=== PATIENT | female | born 1960 | race Caucasian/White ===

== ENCOUNTER 2018-01-04 12:08 | Observation (INO) ==
[2018-01-04] MEDS ORDERED: cefTRIAXone 2,000 MG in Water for inj. (sterile) 20 ML 10 ML IVP ONE (12:18)
[2018-01-04 13:08] LABS: Basophils # 0.1 K/mcL (0.0-0.2); Basophils % 0.5 %; Eosinophils % 0.3 %; Hematocrit 35.5 % (35.3-44.9); Hemoglobin 11.8 g/dL (11.5-15.4); Immature Granulocytes % 1.8 % (0-4); Lymphocytes # 0.7 K/mcL (0.6-4.6); Lymphocytes % 6.6 %; Mean Corpuscular HGB Conc 33.2 g/dL (31.6-35.5); Mean Corpuscular Hemoglobin 28.7 pg (28.0-33.3); Mean Corpuscular Volume 86.4 fL (83.0-100.0); Mean Platelet Volume 9.2 fL (9.4-12.4); Monocytes # 0.5 K/mcL (0.0-1.3); Monocytes % 4.7 %; Neutrophils # 8.8 K/mcL (1.6-8.9); Platelet Count 173 K/mcL (140-400); Red Blood Count 4.11 M/mcL (3.82-4.97); Red Cell Distribution Width 14.1 % (11.5-14.5); Segmented Neutrophils % 86.1 %
--- NOTE | 2018-01-04 13:12 | Emergency Department Note ---
Disposition Clinical Impression: UTI (urinary tract infection) Qualifiers: Urinary tract infection type: site unspecified Hematuria presence: without hematuria Qualified Code(s): N39.0 - Urinary tract infection, site not specified Fever Qualifiers: Fever type: due to other condition Qualified Code(s): R50.81 - Fever presenting with conditions classified elsewhere Disposition: Admitted As Inpatient Referrals: Stephanie Daniels CNP [Primary Care Provider] - Forms: ED Satisfaction Letter Time of Disposition: 14:07 Fever HPI - General Chief Complaint: ED Fever Stated Complaint: fever had surgery yesterday Time Seen by Provider: 01/04/18 12:18 Source: patient Limitations: no limitations Nursing Notes Reviewed: Yes Vital Signs Reviewed: Yes - History of Present Illness HPI Narrative: Patient had procedure yesterday at [place] [place] [facility]. Cystoscopy with stent placement by Dr. Montanez for ureteral obstruction. Past medical history same in March. Patient has had stents in the past. She was discharged approximately 2 PM yesterday and really has not felt well since then. Mid early-morning chills smoker from sleep. Nausea. No vomiting. Denies any headache denies any back or abdominal pain. Denies any chest pain. She reports hourly urination since she was released but states that it has been clear without blood or cloudy appearance. Patient has a history of a urinary tract infection 3 weeks ago took most of her antibiotic she says did not finish all of them Pt Subjective Complaint: fever, malaise, weakness, rigors Onset (ago): hour(s) Maximum Temperature Reported: 103 F Temperature Source: oral Context: recent procedure/surgery Associated symptoms: Reports: chills, rigors, myalgias. Denies: cough, dyspnea , abdominal pain, vomiting, diarrhea Improves with: nothing Worsens with: nothing Treatments prior to arrival fever: none - Related Data Home Medications Medication Instructions Recorded Confirmed Amitriptyline HCl 25 mg PO HS 03/05/16 01/04/18 Cholecalciferol (Vitamin D3) 2,000 unit PO DAILY 03/05/16 01/04/18 [Vitamin D3] Levothyroxine [Synthroid] 112 mcg PO DAILY 03/05/16 01/04/18 Oxybutynin Chloride [Ditropan Xl] 15 mg PO DAILY 03/05/16 01/04/18 Docusate [Colace] 200 mg PO DAILY 01/04/18 01/04/18 Insulin Glargine,Hum.rec.anlog 24 unit SQ HS 01/04/18 01/04/18 [Basaglar Kwikpen U-100] Linagliptin [Tradjenta] 5 mg PO DAILY 01/04/18 01/04/18 Potassium Chloride [K-Tab ER] 20 meq PO DAILY 01/04/18 01/04/18 Allergies Allergy/AdvReac Type Severity Reaction Status Date / Time No Known Allergies Allergy Verified 04/10/16 11:17 All systems ED: reviewed and negative except as stated. Review of Systems: As Per HPI Genitourinary: Reports: as per HPI Fever PMH - Past Medical History Medical history: Reports: diabetes, hypertension, kidney stones, renal disease, other Surgical history: Reports: , thyroidectomy, other Psychiatric history: Reports: no psych history PILE FABRIC KNITTER history: Reports: no PILE FABRIC KNITTER history - Social History Smoking Status: Never smoker Alcohol use: Reports: none Drug use: Reports: none Physical Exam Constitutional: Patient is oriented to person, place, and time. Skin color is pale. Appears well hydrated, body habitus normal . patient appears acutely uncomfortable. She reports chilling. Denies pain. Head: Normocephalic and atraumatic. External ear exam normal Nose: Nose normal. Mouth/Throat: Uvula is midline, oropharynx is clear and moist and mucous membranes are normal. Eyes: Conjunctivae nl, extraocular motions and lids are normal. Pupils are equal , round, and reactive to light. Neck: Normal range of motion and phonation normal. Neck supple. Cardiovascular: Rapid heart rate, regular rhythm, normal heart sounds. Pulmonary/Chest: No Respiratory distress. Respiratory Effort normal and breath sounds clear, breathing rate is rapid. Abdominal: Soft. Normal appearance and bowel sounds are normal. no tenderness, no masses, no guarding, no rebound mild right flank tenderness Musculoskeletal: Good distal pulses. Soft compartments. Brisk cap refill. Extremities: Normal range of motion.Intact peripheral pulses. No Edema. Extremity skin color nl, no calf tenderness or palpable cords. Neurological: Patient is alert and oriented without evidence of obvious motor deficits Skin: Skin is warm, dry and intact. color is pale, cap refill is quick Psychiatric: Patient has depressed mood and flat affect. Patient speech is normal and behavior is normal. Thought content normal. - General Limitations: no limitations General appearance: alert, in no apparent distress Course - Reevaluation(s) Reevaluation #1: Symptoms have improved significantly. Heart rate is down. Patient's lactate is normal and I discussed the case with Dr. Ramírez urology who done the procedure yesterday. He reiterated that she had a balloon dilation of the right ureter for a stricture of the ureter. He was not suspicious that she may have any complication related to that but we did look up culture results from their system on 12/15 and she had Escherichia coli which was pansensitive except for sulfa. He felt as though she should be hospitalized but did not feel as though she required transfer up there. Patient would like to stay here. I spoke with hospitalist on-call Dr. Castellanos who agreed with hospitalization here. he will place orders. pt agreeable to plan Time: 14:07 Vital Signs Temperature 103 F H 01/04/18 12:19 Pulse Rate 103 01/04/18 12:19 Respiratory Rate 22 01/04/18 12:19 Blood Pressure 160/112 01/04/18 12:19 O2 Sat by Pulse Oximetry 95 01/04/18 12:19 Temperature 102.6 F H 01/04/18 13:24 Pulse Rate 92 01/04/18 13:24 Respiratory Rate 16 01/04/18 13:24 Blood Pressure 160/112 01/04/18 12:19 O2 Sat by Pulse Oximetry 95 01/04/18 13:24 Oxygen Delivery Oxygen Delivery Room Air Fever - MDM Narrative Medical decision making narrative: diff dx also includes: aspiration pneumonia sepsis/bacteremia from recent procedure - Differential Diagnosis Likely: community acquired pneumonia, pyelonephritis, sepsis, influenza - Medical Records Medical records reviewed: Yes I reviewed the patient's medical records. - Lab Data Lab results reviewed: Yes I reviewed the patient's lab results. Result diagrams: 01/04/18 12:53 01/04/18 12:53 Lab Results 01/04/18 01/04/18 01/04/18 Range/Units 12:53 12:53 12:53 WBC 10.3 (4.3-11.1) K/mcL RBC 4.11 (3.82-4.97) M/mcL Hgb 11.8 (11.5-15.4) g/dL Hct 35.5 (35.3-44.9) % MCV 86.4 (83.0-100.0) fL MCH 28.7 (28.0-33.3) pg MCHC 33.2 (31.6-35.5) g/dL RDW 14.1 (11.5-14.5) % Plt Count 173 (140-400) K/mcL MPV 9.2 L (9.4-12.4) fL Immature Gran % 1.8 (0-4) % Seg Neutrophils % 86.1 % Lymphocytes % 6.6 % Monocytes % 4.7 % Eosinophils % 0.3 % Basophils % 0.5 % Neutrophils # 8.8 (1.6-8.9) K/mcL Lymphocytes # 0.7 (0.6-4.6) K/mcL Monocytes # 0.5 (0.0-1.3) K/mcL Eosinophils # 0.0 (0.0-0.6) K/mcL Basophils # 0.1 (0.0-0.2) K/mcL Sodium 129 L (136-145) mEq/L Potassium 4.0 (3.5-5.1) mEq/L Chloride 103 (98-107) mEq/L Carbon Dioxide 20 L (23-29) mEq/L BUN 39 H (6-20) mg/dL Creatinine 2.03 H (0.60-1.20) mg/dL Est GFR ( Amer) 30 L (> 60) Est GFR (Non-Af Amer) 25 L (> 60) BUN/Creatinine Ratio 19 (6-26) Glucose 219 H (70-105) mg/dL Calculated Osmolality 284 (280-300) Lactic Acid 0.9 (0.5-2.2) mmol/L Calcium 8.8 (8.6-10.3) mg/dL Total Bilirubin 0.4 (0.3-1.0) mg/dL Direct Bilirubin 0.1 (0.0-0.2) mg/dL Indirect Bilirubin 0.3 (0.0-1.2) mg/dL AST 11 L (13-39) Units/L ALT 9 (7-52) Units/L Alkaline Phosphatase 91 (34-104) Units/L Serum Total Protein 7.7 (6.4-8.9) g/dL Albumin 3.6 (3.5-5.7) g/dL Globulin 4.1 H (2.4-3.5) g/dL Albumin/Globulin Ratio 0.9 L (1.1-2.2) - Radiology Data Radiology results reviewed: Yes I reviewed the patient's radiology results. Portable chest x-ray per radiology reveals no evidence of acute cardiopulmonary disease. KUB reveals double J right ureteral stent to be in good position
[2018-01-04] MEDS: 0.9 % Sodium Chloride 1,000 ML IVC SCH ×4 (13:19→23:16)
[2018-01-04 13:23] LABS: Albumin 3.6 g/dL (3.5-5.7); Albumin/Globulin Ratio 0.9 (1.1-2.2); Bilirubin,Direct 0.1 mg/dL (0.0-0.2); Bilirubin,Indirect 0.3 mg/dL (0.0-1.2); Bilirubin,Total 0.4 mg/dL (0.3-1.0); Calcium 8.8 mg/dL (8.6-10.3); Globulin 4.1 g/dL (2.4-3.5); Total Protein 7.7 g/dL (6.4-8.9)
[2018-01-04 14:14] LABS: Bilirubin,Urine Negative (Negative); Blood,Urine Large (Negative); Clarity,Urine Slightly Cloudy (Clear); Color,Urine Yellow (Yellow); Glucose,Urine (UA) Normal (Normal); Ketones,Urine Negative (Negative); Leukocyte Esterase,Urine Large (Negative); Nitrite,Urine Negative (Negative); Protein,Urine >=300 mg/dL (Neg-Trace); Specific Gravity,Urine 1.015 (1.010-1.025); Urobilinogen,Urine Normal (Normal)
[2018-01-04 14:15] LABS: Bacteria,Urine Moderate per hpf (None-Few); RBC,Urine 50-100 per hpf (0-3); Squamous Epithelial Cell,Urine Few per lpf (None-Few); WBC,Urine TNTC per hpf (0-3)
[2018-01-04] MEDS ORDERED: *HR* Dextrose 50 % in Water (Syg) 50 ML SYRINGE IVP PRN (16:34)
[2018-01-04] MEDS ORDERED: Dextrose Gel 15 GM/37.5 ML TUBE PO PRN ×2 (16:34)
[2018-01-04] MEDS ORDERED: D5% in Water 1,000 ML IVC PRN (16:34)
[2018-01-04] MEDS: *HR* Heparin 5,000 UNIT/ML VIAL SQ SCH (17:39)
[2018-01-04] MEDS: Acetaminophen 325 MG TABLET PO PRN (18:25)
[2018-01-04] MEDS: Insulin LISPRO 300 UNITS/3 ML VIAL SQ SCH (21:26)
[2018-01-04] MEDS: Insulin DETEMIR 100 UNIT/ML X5UNITS SQ SCH (21:29)
[2018-01-05] MEDS: *HR* Heparin 5,000 UNIT/ML VIAL SQ SCH ×2 (05:44→18:41)
[2018-01-05] MEDS: 0.9 % Sodium Chloride 1,000 ML IVC SCH ×3 (06:25→23:02)
[2018-01-05 06:55] LABS: Calcium 7.9 mg/dL (8.6-10.3); Potassium 3.6 mEq/L (3.5-5.1)
[2018-01-05 07:04] LABS: Basophils % 0.3 %; Eosinophils % 0.2 %; Hematocrit 30.9 % (35.3-44.9); Hemoglobin 10.3 g/dL (11.5-15.4); Immature Granulocytes % 1.1 % (0-4); Lymphocytes # 1.7 K/mcL (0.6-4.6); Lymphocytes % 13.4 %; Mean Corpuscular HGB Conc 33.3 g/dL (31.6-35.5); Mean Corpuscular Hemoglobin 28.5 pg (28.0-33.3); Mean Corpuscular Volume 85.4 fL (83.0-100.0); Mean Platelet Volume 10.9 fL (9.4-12.4); Monocytes # 0.5 K/mcL (0.0-1.3); Monocytes % 4.1 %; Platelet Count 106 K/mcL (140-400); Red Blood Count 3.62 M/mcL (3.82-4.97); Red Cell Distribution Width 14.3 % (11.5-14.5); Segmented Neutrophils % 80.9 %
[2018-01-05 07:06] LABS: Thyroid Stimulating Hormone 2.828 mcIU/mL (0.340-5.600)
[2018-01-05] MEDS: cefTRIAXone 1,000 MG in Water for inj. (sterile) 20 ML 10 ML IVP SCH (08:56)
[2018-01-05] MEDS: Cholecalciferol (D-3) 1,000 UNIT TABLET PO SCH (08:56)
[2018-01-05] MEDS: (Linagliptin [Tradjenta] 5 MG) PO SCH (08:57)
[2018-01-05] MEDS: Insulin LISPRO 300 UNITS/3 ML VIAL SQ SCH ×4 (08:57→20:55)
--- NOTE | 2018-01-05 14:31 | Internal Med History&Physical ---
Date of Encounter: 01/05/18 Time of Encounter: 14:28 Assessment and Plan (1) UTI (urinary tract infection) Current visit: Yes Status: Acute Patient continues to have frequency but denies any dysuria or hematuria. Patient continues on Rocephin for UTI. Continued with low-grade fever. We will continue with current plan of care. Vital signs are stable. We will evaluate for possible conversion to oral antibiotics Qualifiers: Urinary tract infection type: acute cystitis Hematuria presence: without hematuria Qualified Code(s): N30.00 - Acute cystitis without hematuria (2) Volume depletion Current visit: Yes Status: Acute Resolved. Patient had 0.9NS infusing at 125 cc/hr overnight and today her sodium has dropped to 126 with a serum osmole of 271. Patient's taking by mouth fluids well. We will discontinue current IV fluids (3) Type 2 diabetes mellitus Current visit: No Status: Chronic No acute issues. Glucose remains slightly elevated but is covered with SSRI. We will continue with current medications. Qualifiers: Diabetes mellitus complication status: with kidney complications Diabetes mellitus complication detail: with chronic kidney disease Diabetes mellitus tower air traffic control specialist insulin use: without tower air traffic control specialist use Chronic kidney disease stage: stage 3 (moderate) Qualified Code(s): E11.22 - Type 2 diabetes mellitus with diabetic chronic kidney disease (4) CKD (chronic kidney disease), stage III Current visit: No Status: Chronic No acute issues. Patient's creatinine has dropped to 1.9. We will stop IV fluid resuscitation at this time. Internal Medicine - H&P: HPI Admitted From: Home Plans for Post Hospital Care: Home History of present illness: Ms. Costello is a 57 year old female who was admitted to emergency department yesterday with UTI. Patient had a ureter stent placed 2 days ago by urology and was discharged to home. Yesterday she had fever and chills with a temperature of 103 and presented to emergency Department. Patient was admitted for IV antibiotics and fluid resuscitation. Patient currently appears relaxed and denies any issues. Remains febrile with low-grade fever. Patient has received IV fluids overnight and currently her labs show her sodium dropping to 126 with a calculated serum osmolality 271. Patient states she continues to have frequency but denies any dysuria or hematuria. Denies any other discomforts Past Med Surg Social Fam HX - Past Medical History Medical history: diabetes, hypertension, kidney stones, renal disease, other Psychiatric history: no psych history - Past Surgical History Surgical History: , thyroidectomy, other - Social History Smoking Status: Never smoker Smokeless Tobacco Status: No Alcohol use: none Drug use: none - Family History Mother Living Status: Hx Family Cardiac Disorders: Yes (NH) Hx Family Neurologic Disorders: Yes (STROKE) Father Living Status: Internal Medicine - H&P: Meds Amitriptyline HCl 25 mg PO HS 03/05/16 [History] Cholecalciferol (Vitamin D3) [Vitamin D3] 2,000 unit PO DAILY 03/05/16 [History] Levothyroxine [Synthroid] 112 mcg PO DAILY 03/05/16 [History] Oxybutynin Chloride [Ditropan Xl] 15 mg PO DAILY 03/05/16 [History] Docusate [Colace] 200 mg PO DAILY 01/04/18 [History] Insulin Glargine,Hum.rec.anlog [Basaglar Kwikpen U-100] 24 unit SQ HS 01/04/18 [ History] Linagliptin [Tradjenta] 5 mg PO DAILY 01/04/18 [History] Potassium Chloride [K-Tab ER] 20 meq PO DAILY 01/04/18 [History] 3 Allergy/AdvReac Type Severity Reaction Status Date / Time No Known Allergies Allergy Verified 04/10/16 11:17 All Systems PM: A 10-system review of systems was performed and is negative for pertinent findings except as documented above in the HPI. - Constitutional Constitutional: no chills, no fever(s), no night sweats - EENT Eyes: no change in vision, no discharge, no pain, no photophobia Ears: no ear discharge, no ear pain, no tinnitus Nose, mouth and throat: no dysphagia, no nasal discharge, no neck pain, no sore throat - Cardiovascular Cardiovascular ROS IM: no chest pain, no diaphoresis, no dyspnea, no lightheadedness, no palpitations, no syncope - Respiratory Respiratory: no cough, no dyspnea, no wheezing, no excessive phlegm production - Gastrointestinal Gastrointestinal: no abdominal pain, no diarrhea, no hematemesis, no hematochezia, no melena, no nausea, no vomiting - Genitourinary Genitourinary: urinary frequency, no change in urinary stream, no dysuria, no flank pain, no hematuria - Musculoskeletal Musculoskeletal ROS IM: no numbness, no tingling - Integumentary Integumentary IM: no rash, no unusual bruising - Neurological Neurological ROS: no confusion, no convulsions, no focal weakness, no numbness, no tingling, no tremor(s) - Hematologic/Lymphatic Hematologic/Lymphatic: no easy bruising - Constitutional Vitals: Temp Pulse Resp BP Pulse Ox 99.1 F 61 16 150/81 97 01/05/18 11:00 01/05/18 11:00 01/05/18 11:00 01/05/18 11:00 01/05/18 11:00 General appearance: Present: A&O X 3, pleasant - Head Head exam: Present: atraumatic, normocephalic - Eye Eye exam: Present: PERRL, conjuntiva pink, sclera anicteric Pupils: Present: PERRL - Neck Neck exam general surgery: Present: supple, trachea midline. Absent: lymphadenopathy - Respiratory Respiratory exam: Present: CTAB. Absent: accessory muscle use, rales, rhonchi, wheezes - Cardiovascular Cardiovascular exam: Present: RRR, +S1, +S2. Absent: diastolic murmur, gallop, rubs, systolic murmur - GI/Abdominal GI/Abdominal exam: Present: normal bowel sounds, soft, no peritoneal signs. Absent: distended, tenderness - Extremities Exam Extremities exam: Present: warm, radial pulses palpable and symmetrical. Absent : calf tenderness, cyanotic, pedal edema - Neurological Exam Neurological exam: Present: CN II-XII intact, oriented X3, no focal deficits. Absent: pronater drift, facial droop, speech deficit - Skin Skin exam: Present: dry, intact Internal Med - H&P Results - Labs CBC & Chem 7: 01/05/18 06:10 01/05/18 06:10 Labs: Short CBC 01/05/18 Range/Units 06:10 WBC 12.3 H (4.3-11.1) K/mcL Hgb 10.3 L D (11.5-15.4) g/dL Hct 30.9 L (35.3-44.9) % Plt Count 106 L (140-400) K/mcL Neutrophils # 10.0 H (1.6-8.9) K/mcL BMP 01/05/18 06:10 Sodium 126 L Potassium 3.6 Chloride 101 Carbon Dioxide 17 L BUN 33 H Creatinine 1.91 H Glucose 122 H Calcium 7.9 L
[2018-01-05] MEDS: Acetaminophen 325 MG TABLET PO PRN (16:41)
[2018-01-05] MEDS: Insulin DETEMIR 100 UNIT/ML X5UNITS SQ SCH (20:56)
[2018-01-06] MEDS: *HR* Heparin 5,000 UNIT/ML VIAL SQ SCH (05:30)
[2018-01-06] MEDS: 0.9 % Sodium Chloride 1,000 ML IVC SCH (06:42)
[2018-01-06 07:00] LABS: Basophils % 0.4 %; Eosinophils # 0.2 K/mcL (0.0-0.6); Eosinophils % 2.9 %; Hematocrit 27.2 % (35.3-44.9); Hemoglobin 8.9 g/dL (11.5-15.4); Immature Granulocytes % 0.5 % (0-4); Lymphocytes # 1.4 K/mcL (0.6-4.6); Lymphocytes % 18.1 %; Mean Corpuscular HGB Conc 32.7 g/dL (31.6-35.5); Mean Corpuscular Hemoglobin 28.3 pg (28.0-33.3); Mean Corpuscular Volume 86.3 fL (83.0-100.0); Mean Platelet Volume 9.7 fL (9.4-12.4); Monocytes # 0.7 K/mcL (0.0-1.3); Monocytes % 9.4 %; Neutrophils # 5.1 K/mcL (1.6-8.9); Platelet Count 130 K/mcL (140-400); Red Blood Count 3.15 M/mcL (3.82-4.97); Red Cell Distribution Width 14.2 % (11.5-14.5); Segmented Neutrophils % 68.7 %
[2018-01-06 07:21] LABS: Albumin 2.5 g/dL (3.5-5.7); Albumin/Globulin Ratio 0.7 (1.1-2.2); Bilirubin,Total 0.3 mg/dL (0.3-1.0); Globulin 3.6 g/dL (2.4-3.5); Magnesium 1.3 mg/dL (1.6-2.6); Potassium 3.7 mEq/L (3.5-5.1); Total Protein 6.1 g/dL (6.4-8.9)
[2018-01-06] MEDS: Insulin LISPRO 300 UNITS/3 ML VIAL SQ SCH ×2 (08:01→13:05)
[2018-01-06] MEDS: (Linagliptin [Tradjenta] 5 MG) PO SCH (09:16)
[2018-01-06] MEDS: Cholecalciferol (D-3) 1,000 UNIT TABLET PO SCH (09:36)
[2018-01-06] MEDS: cefTRIAXone 1,000 MG in Water for inj. (sterile) 20 ML 10 ML IVP SCH (09:37)
--- NOTE | 2018-01-06 11:53 | Internal Med Progress Note ---
Date of Encounter: 01/06/18 Time of Encounter: 11:51 - Assessment and plan (1) UTI (urinary tract infection) Current Visit: Yes Status: Acute Assessment and plan: She continues to be febrile. Vital signs remained stable. Continues with frequency but no hematuria or dysuria. We will continue with Rocephin. Awaiting urine sensitivity and results of blood cultures Qualifiers: Urinary tract infection type: acute cystitis Hematuria presence: without hematuria Qualified Code(s): N30.00 - Acute cystitis without hematuria (2) Volume depletion Current Visit: Yes Status: Acute Assessment and plan: Reviewed which appear to have corrected well. Patient continues on IV fluids at this time. (3) Type 2 diabetes mellitus Current Visit: No Status: Chronic Assessment and plan: No acute issues. Glucose appears well controlled and will continue with current medications Qualifiers: Diabetes mellitus complication status: with kidney complications Diabetes mellitus complication detail: with chronic kidney disease Diabetes mellitus mcfp insulin use: without mcfp use Chronic kidney disease stage: stage 3 (moderate) Qualified Code(s): E11.22 - Type 2 diabetes mellitus with diabetic chronic kidney disease (4) CKD (chronic kidney disease), stage III Current Visit: No Status: Chronic Assessment and plan: No acute issues. Patient's labs of corrected well. We will continue with current plan of care. - Subjective Interval history: Patient appears relaxed and denies any current discomforts or shortness of breath. Patient states she continues to have frequency but denies any dysuria. Urine remains clear with no yolande blood noted. Patient had elevated temperature of 102 yesterday evening and has had a low-grade fever during the night. Today she is afebrile. Patient denies any chills - Constitutional Vitals: Temp Pulse Resp BP Pulse Ox 98.7 F 68 16 127/81 93 01/06/18 07:57 01/06/18 07:57 01/06/18 07:57 01/06/18 07:57 01/06/18 07:57 General appearance: Present: A&O X 3, pleasant - Head Head exam: Present: atraumatic, normocephalic - Eye Eye exam: Present: PERRL, conjuntiva pink, sclera anicteric Pupils: Present: PERRL - Neck Neck exam general surgery: Present: supple, trachea midline. Absent: lymphadenopathy - Respiratory Respiratory exam: Present: CTAB. Absent: accessory muscle use, rales, rhonchi, wheezes - Cardiovascular Cardiovascular exam: Present: RRR, +S1, +S2. Absent: diastolic murmur, gallop, rubs, systolic murmur - GI/Abdominal GI/Abdominal exam: Present: normal bowel sounds, soft, no peritoneal signs. Absent: distended, tenderness - Extremities Exam Extremities exam: Present: warm, radial pulses palpable and symmetrical. Absent : calf tenderness, cyanotic, pedal edema - Neurological Exam Neurological exam: Present: CN II-XII intact, oriented X3, no focal deficits. Absent: pronater drift, facial droop, speech deficit - Skin Skin exam: Present: dry, intact Internal Medicine: Result - Labs CBC & Chem 7: 01/06/18 06:27 01/06/18 06:27 Labs: Short CBC 01/06/18 Range/Units 06:27 WBC 7.5 (4.3-11.1) K/mcL Hgb 8.9 L (11.5-15.4) g/dL Hct 27.2 L (35.3-44.9) % Plt Count 130 L (140-400) K/mcL Neutrophils # 5.1 (1.6-8.9) K/mcL BMP 01/06/18 06:27 Sodium 131 L Potassium 3.7 Chloride 105 Carbon Dioxide 20 L BUN 31 H Creatinine 1.78 H Glucose 88 Calcium 8.0 L Liver Function 01/06/18 Range/Units 06:27 Total Bilirubin 0.3 (0.3-1.0) mg/dL AST 17 (13-39) Units/L ALT 11 (7-52) Units/L Alkaline Phosphatase 82 (34-104) Units/L Albumin 2.5 L (3.5-5.7) g/dL Consult Discharge Plan - Plan Referrals: Stephanie Daniels, RECEIVING DISTRIBUTION STATION OPERATOR [Primary Care Provider] -
[2018-01-06] MEDS ORDERED: Fluconazole 100 MG TABLET PO SCH (13:30)
[2018-01-06 13:35] VITALS: BP 145/87
--- NOTE | 2018-01-06 14:32 | Discharge Summary ---
Date of Encounter: 01/06/18 Time of Encounter: 13:51 - Discharge Diagnosis (1) UTI (urinary tract infection) Priority: Primary Status: Acute Comments: Patients finalized culture returned with overgrowth yeast infection. Patient will be discharged to home with continued oral antibiotics of Keflex for 5 days. Patient also will be given a dose of Diflucan 200mg now and then daily for the next 2 days. Patient also instructed to take a dose weekly during the following two weeks. Information was called to her Urologist with patients status report and recommendations that she f/u with him. Patient recommended to f/u with PCP in one week for further evaluation and labs. Qualifiers: Urinary tract infection type: acute cystitis Hematuria presence: without hematuria Qualified Code(s): N30.00 - Acute cystitis without hematuria (2) Volume depletion Priority: Secondary Status: Acute Comments: Resolved. Pt to f/u with PCP for evaluation and labs. (3) Type 2 diabetes mellitus Priority: Secondary Status: Chronic Comments: No current issues. Pt to continue on home meds. Qualifiers: Diabetes mellitus complication status: with kidney complications Diabetes mellitus complication detail: with chronic kidney disease Diabetes mellitus longterm insulin use: without terminal clerk use Chronic kidney disease stage: stage 3 (moderate) Qualified Code(s): E11.22 - Type 2 diabetes mellitus with diabetic chronic kidney disease (4) CKD (chronic kidney disease), stage III Priority: Secondary Status: Chronic Comments: No issues. Continue on home meds. - Discharge Medications Home Medications: Amitriptyline HCl 25 mg PO HS 03/05/16 [History] Cholecalciferol (Vitamin D3) [Vitamin D3] 2,000 unit PO DAILY 03/05/16 [History] Levothyroxine [Synthroid] 112 mcg PO DAILY 03/05/16 [History] Oxybutynin Chloride [Ditropan Xl] 15 mg PO DAILY 03/05/16 [History] Docusate [Colace] 200 mg PO DAILY 01/04/18 [History] Insulin Glargine,Hum.rec.anlog [Basaglar Kwikpen U-100] 24 unit SQ HS 01/04/18 [ History] Linagliptin [Tradjenta] 5 mg PO DAILY 01/04/18 [History] Potassium Chloride [K-Tab ER] 20 meq PO DAILY 01/04/18 [History] Allergies/Adverse Reactions: 3 Allergy/AdvReac Type Severity Reaction Status Date / Time No Known Allergies Allergy Verified 04/10/16 11:17 Date of admission: 01/04/18 15:08 Primary care physician: Stephanie Daniels CNP Discharging clinician: Juan C Mackey - Patient Status Disposition: Home, Self-Care Condition: Good Functional capacity at discharge: independent ambulation Overall status at discharge: patient is progressing back to baseline - Discharge Instructions Follow Up With: Stephanie Daniels CNP [Primary Care Provider] - - Diet and Activity Activity: increase activity as tolerated Hospital course: Ms. Costello is a 57 year old female who presented to the emergency department with a fever of 103 approximately 24 hours after a urology procedure in which she had a stent placed to her right ureter. Patient was found to have a UTI and was admitted for IV antibiotics and for fluid resuscitation due to fluid depletion. Patient responded well, but was noted to continue to have elevated fevers for up to 24 hours after admission. Today patient is afebrile with vital signs stable. The urinalysis was found to have a normal growth of yeast. Patient's antibiotics were changed to oral and she is to continue on Keflex for the next 5 days and Diflucan for 3 days and then weekly for two weeks. Patient's urine remained clear with no yolande blood noted. Pt instructed to f/u with Urology and PCP. Time spent discussing smoking cessation with patient: 3 to 10 minutes - Time Spent with Patient Total time spent providing and/or coordinating discharge services: Less than 30 minutes - Constitutional Vitals: Temp Pulse Resp BP Pulse Ox 98.5 F 54 16 145/87 97 01/06/18 12:00 01/06/18 12:00 01/06/18 12:00 01/06/18 12:01/06/18 12:00 General appearance: Present: A&O X 3, pleasant - Head Head exam: Present: atraumatic, normocephalic - Eye Eye exam: Present: PERRL, conjuntiva pink, sclera anicteric Pupils: Present: PERRL - Neck Neck exam general surgery: Present: supple, trachea midline. Absent: lymphadenopathy - Respiratory Respiratory exam: Present: CTAB. Absent: accessory muscle use, rales, rhonchi, wheezes - Cardiovascular Cardiovascular exam: Present: RRR, +S1, +S2. Absent: diastolic murmur, gallop, rubs, systolic murmur - GI/Abdominal GI/Abdominal exam: Present: normal bowel sounds, soft, no peritoneal signs. Absent: distended, tenderness - Extremities Exam Extremities exam: Present: warm, radial pulses palpable and symmetrical. Absent : calf tenderness, cyanotic, pedal edema - Neurological Exam Neurological exam: Present: CN II-XII intact, oriented X3, no focal deficits. Absent: pronater drift, facial droop, speech deficit - Skin Skin exam: Present: dry, intact
== END 2018-01-06 15:15 | disposition home or self-care (01) ==
LOC: INPGRE 12:08 → EMEROOGRE 12:08 → INPGRE 16:00